=== PATIENT | female | born 1985 | race Caucasian/White ===

== ENCOUNTER 2016-10-20 15:00 | Outpatient (CLI) | payer OTHER, SELFPAY ==
[2016-10-20 16:17] LABS: Free T4 (Free Thyroxine) 1.64 ng/dL (0.70-1.48)
[2016-10-20 16:57] LABS: Thyroid Stimulating Hormone 0.0082 uIU/mL (0.35-4.94)
== END 2016-10-20 15:01 | disposition home or self-care (01) ==
LOC: NAVSJIPCSP 15:00
PROVIDERS: ATTEND Nurse Practitioner Family
DX: E03.9 Hypothyroidism, unspecified (principal)
CPT/HCPCS: 84439; 84443; 84481

== ENCOUNTER 2017-06-29 17:39 | Emergency (ER) | payer OTHER, SELFPAY ==
[2017-06-29] MEDS ORDERED: Naproxen 500 MG TAB ONE (18:21)
== END 2017-06-29 18:28 | disposition home or self-care (01) ==
LOC: NAV ERS 17:39
DX: K12.2 Cellulitis and abscess of mouth (principal); K04.7 Periapical abscess without sinus; K02.9 Dental caries, unspecified; E03.9 Hypothyroidism, unspecified; F17.210 Nicotine dependence, cigarettes, uncomplicated; Z79.899 Other long term (current) drug therapy
CPT/HCPCS: 41000

== ENCOUNTER 2020-02-14 19:06 | Emergency (ER) | payer OTHER, SELFPAY ==
[2020-02-14 19:35] LABS: Bilirubin Negative (Negative); Blood, Urine Large (Negative); Clarity Clear (Clear); Glucose, Urine (Dipstick) Negative (Negative); Ketone, Urine Negative (Negative); Leukocyte Trace (Negative); Nitrite Positive (Negative); Protein, Urine (Dipstick) > or equal to 300 mg/dL (Neg-Trace); pH, Urine 6.5 (5.0-9.0)
[2020-02-14 19:40] LABS: Specific Gravity, Urine Greater/Equal 1.030 (1.005-1.030)
[2020-02-14 19:42] LABS: Bacteria/HPF 2+ HPF (None Seen); RBC/HPF Greater than 50 HPF (0-3); Squamous Epithelial 0-3 HPF (0-3); WBC/HPF Greater Than 50 HPF (0-3)
[2020-02-14] MEDS ORDERED: Nitrofurantoin Macrocrystal 50 MG CAP ONE (20:06)
[2020-02-14] MEDS ORDERED: Phenazopyridine HCl 97.5 MG TABLET ONE (20:06)
== END 2020-02-14 20:10 | disposition home or self-care (01) ==
LOC: NAV ERS 19:06
DX: N39.0 Urinary tract infection, site not specified (principal); E03.9 Hypothyroidism, unspecified; F41.9 Anxiety disorder, unspecified; F31.9 Bipolar disorder, unspecified; F90.9 Attention-deficit hyperactivity disorder, unspecified type; F17.210 Nicotine dependence, cigarettes, uncomplicated; Z79.899 Other long term (current) drug therapy
CPT/HCPCS: 81003; 81015; 87077; 87086; 87186; 99283